=== PATIENT | female | born 1995 | race Caucasian/White ===

== ENCOUNTER 2017-03-16 09:01 | Emergency (ER) | payer OTHER ==
[~2017-03-16] VITALS: Ht 172.7 cm; Wt 52.2 kg
[2017-03-16] MEDS ORDERED: CORTAID (09:09)
[2017-03-16 09:17] VITALS: BP 122/70
[2017-03-16 09:22] VITALS: BP 122/70
[2017-03-16] MEDS ORDERED: RANITIDINE HCL150 MG ORAL (09:23)
[2017-03-16] MEDS ORDERED: BENADRYL25 MG ORAL (09:23)
[2017-03-16] MEDS ORDERED: PREDNISONE20 MG ORAL (09:23)
--- NOTE | 2017-03-16 09:29 | Emergency Room Report ---
History of Present Illness General Chief Complaint: Skin Rash/Abscess Source: Patient Present Illness HPI Patient presents with complaints of a diffuse rash Patient noticed a small area on the right upper leg area yesterday morning However she has noticed more of a diffuse rash now involving both upper arms, lower legs Denies any fevers or chills she does Reports some URI symptoms however over the past few days Denies any vomiting denies any recent vaccinations Patient is traveling here Allergies: Coded Allergies: No Known Allergies (Unverified , 03/16/17) Patient History Past Medical History: see triage record Pertinent Family History: none Last Menstrual Period: 03/02/17 Now: No Reviewed Nursing Documentation: PMH: Agreed, PSxH: Agreed Nursing Documentation-PMH Past Medical History: No Stated History Review of Systems All Other Systems: negative except mentioned in HPI - Also denies any difficulty breathing, denies any respiratory complaints, denies any visual complaints Physical Exam Vital Signs Date Time Temp Pulse Resp B/P (MAP) Pulse Ox O2 Delivery O2 Flow Rate FiO2 03/16/17 09:05 98.2 89 16 122/70 99 Room Air Sp02 EP Interpretation: reviewed, normal General Appearance: well appearing, no apparent distress Head: normocephalic, atraumatic Eyes: bilateral eye PERRL, bilateral eye EOMI ENT: hearing grossly normal, normal pharynx, TMs + canals normal, uvula midline Neck: full range of motion, supple, no meningismus, no bony tend Respiratory: lungs clear, normal breath sounds, no rhonchi, no respiratory distress, no retraction, no accessory muscle use Cardiovascular #1: normal peripheral pulses, regular rate, rhythm, no edema, no gallop, no JVD, no murmur Gastrointestinal: normal bowel sounds, non tender, soft, no mass, no organomegaly, non-distended, no guarding, no hernia, no pulsatile mass, no rebound Genitourinary: no CVA tenderness Musculoskeletal: normal inspection Neurologic: oriented x3, responsive, 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, motor strength/ tone normal, sensory intact Psychiatric: mood/affect normal Skin: other - Diffuse urticarial rash, mild a raised edge, easily blanching, no obvious dermatomal fashion, no obvious abscess or petechiae Lymphatic: normal inspection, no adenopathy Medical Decision Making Diagnostic Impression: Primary Impression: Rash and other nonspecific skin eruption ER Course Patient presents with a nonspecific rash Appears well, does not appear septic or toxic The source of the reaction is not clear patient however was treated symptomatically here in the ER Placed on appropriate medications and requires close outpatient followup Last Vital Signs Date Time Temp Pulse Resp B/P (MAP) Pulse Ox O2 Delivery O2 Flow Rate FiO2 03/16/17 09:22 98.2 69 16 122/70 99 Room Air Status: improved Disposition: HOME, SELF-CARE Condition: Improved Scripts Ranitidine Hcl* (ZANTAC*) 150 Mg Tablet 150 MG ORAL DAILY, #20 TAB Prov: JOYCELYN COTTRELL D.O. 03/16/17 Diphenhydramine Hcl* (BENADRYL*) 25 Mg Capsule 25 MG ORAL Q6H Y for Itching, #20 CAP Prov: JOYCELYN COTTRELL D.O. 03/16/17 Prednisone* (PREDNISONE*) 20 Mg Tablet 20 MG ORAL BID, #8 TAB Prov: JOYCELYN COTTRELL D.O. 03/16/17 Patient Instructions: Rash Additional Instructions: Patient is provided with the discharge instructions notified to follow up with primary doctor in the next 2-3 days otherwise return to the er with any worsening symptoms. Please note that this report is being documented using [employer] technology. This can lead to erroneous entry secondary to incorrect interpretation by the dictating instrument. JOYCELYN COTTRELL D.O. Mar 16, 2017 09:29
[2017-03-16] MEDS ORDERED: PredniSONE 20mg tab ORAL ONE (09:30)
== END 2017-03-16 09:45 | disposition home or self-care (01) ==
LOC: EMR 09:33
DX: R21 Rash and other nonspecific skin eruption (principal)
CPT/HCPCS: 99284